=== PATIENT | male | born 2000 | race Hispanic/Latino ===

== ENCOUNTER 2020-06-30 22:20 | Emergency (ER) | payer SELFPAY ==
[~2020-06-30] VITALS: Ht 172.7 cm; Wt 86.2 kg
[2020-06-30] MEDS ORDERED: IBUPROFEN 600 MG TAB PO STA (22:22)
[2020-06-30] MEDS ORDERED: ACETAMINOPHEN 325 MG TAB PO ONE (22:30)
--- NOTE | 2020-06-30 22:42 | Emergency Department Note ---
History of Present Illnes History of Present Illness Chief Complaint: COVID PUI History of Present Illness This is a 20 year old male with no significant past medical history except for positive coronavirus who presents to emergency department for continued fever and shortness of breath. He has a pulse oximeter at home has been taking szeq-hen-yauijwl medications. He has ran out of Tylenol and ibuprofen and has had a fever today. He continues to feel shortness of breath and is concerned he has pneumonia. Historian: Patient Arrival Mode: Car Additional Treatment LICENSED GUIDE: None Director Of Special Services Required: No Onset (how long ago): day(s) (10) Location: Lungs Quality: SoB Radiation: Reports non-radiation Severity: moderate Onset quality: gradual Duration (how long): day(s) (10) Timing of current episode: constant Progression: worsening Chronicity: new Context: Reports recent illness Relieving factors: none Exacerbating factors: none Associated symptoms: Reports denies other symptoms Past Medical/Family History Physician Review I have reviewed the patient's past medical and family history. Any updates have been documented here. Review of Systems Review of Systems Constitutional: Reports as per HPI, Reports chills, Reports fever EENTM: Reports no symptoms Cardiovascular: Reports no symptoms Respiratory: Reports as per HPI, Reports dyspnea, Reports dyspnea on exertion Gastrointestinal: Reports no symptoms Genitourinary: Reports no symptoms Musculoskeletal: Reports no symptoms Integumentary: Reports no symptoms Neurological: Reports no symptoms Psychological: Reports no symptoms Endocrine: Reports no symptoms Hematological/Lymphatic: Reports no symptoms Review of other systems: All other systems negative Physical Exam Related Data Allergies: Coded Allergies: No Known Allergies (Unverified , 06/30/20) Vital signs reviewed: Yes Physical Exam CONSTITUTIONAL Constitutional: Present well-developed, Present well-nourished HENT HENT: Present normocephalic, Present atraumatic, Present oropharynx clear/moist, Present nose normal HENT L/R: Present left ext ear normal, Present right ext ear normal EYES Eyes: Reports PERRL, Reports conjunctivae normal NECK Neck: Present ROM normal PULMONARY Pulmonary: Present effort normal, Present breath sounds normal, Present other (Crackles in lung bases); Absent respiratory distress CARDIOVASCULAR Cardiovascular: Present regular rhythm, Present heart sounds normal, Present capillary refill normal, Present normal rate GASTROINTESTINAL Abdominal: Present soft, Present nontender, Present bowel sounds normal GENITOURINARY Genitourinary: Present exam deferred SKIN Skin: Present warm, Present dry MUSCULOSKELETAL Musculoskeletal: Present ROM normal NEUROLOGICAL Neurological: Present alert, Present oriented x 3, Present no gross motor or sensory deficits PSYCHOLOGICAL Psychological: Present mood/affect normal, Present judgement normal Assessment & Plan Medical Decision Making MDM 20-year-old male who is COVID positive presents for continued fever and shortness of breath. Symptoms have been present for 10 days. He was taking zeun-bxj-rhwwkfh cold medicines but has since run out of Tylenol or ibuprofen. He is concerned that he has pneumonia. Examination shows fever of 102 and initial heart rate of 114 with O2 sats 96%. No wrist or distress and is otherwise well-appearing. He was given Tylenol and ibuprofen and a chest x-ray obtained which is consistent with COVID-19. I discussed with him at length the expected disease time course and management. Gave him return precautions and he'll continue to use his pulse oximeter at home. He will continue to use jbiw-thu-lhecwlg cold medicines as well as Tylenol and ibuprofen. Patient states agreement plan is appropriate for discharge. Reassessment Reassessment time: 22:41 Reassessment Well appearing, symptoms improved after Tylenol/ibuprofen Assessment & Plan Final Impression: (1) COVID-19 Depart Disposition: HOME, SELF-CARE Medications in the ED Acetaminophen 650 mg ONCE ONCE PO Last administered on 06/30/20at 22:29; Admin Dose 650 MG; Start 06/30/20 at 22:30; Stop 06/30/20 at 22:31; Status UNV Ibuprofen 600 mg ONCE STAT PO Last administered on 06/30/20at 22:29; Admin Dose 600 MG; Start 06/30/20 at 22:22; Stop 06/30/20 at 22:23; Status UNV TAI DAVIS MD Jun 30, 2020 22:42
--- NOTE | 2020-07-01 00:38 | Diagnostic Imaging Report ---
EXAMINATION: CHEST SINGLE (PORTABLE) INDICATION: ^Y ^SoB ^[id number] ^2300 COMPARISON: None FINDINGS: AP view TUBES and LINES: None. LUNGS: Limited by body habitus and low lung volumes. Left basilar linear opacification. PLEURA: No pleural effusion or pneumothorax. HEART AND MEDIASTINUM: The cardiomediastinal silhouette is unremarkable. BONES AND SOFT TISSUES: No acute osseous lesion. Soft tissues are unremarkable. UPPER ABDOMEN: No free air under the diaphragm. IMPRESSION: Limited as above. Left basilar linear opacification, could represent atelectasis/scarring versus pneumonia in the appropriate clinical context. Signed by: Dr. Filemon Monteiro MD on 06/30/2020 11:35 PM
--- NOTE | 2020-07-01 00:49 | Diagnostic Imaging Report ---
EXAMINATION: CHEST SINGLE (PORTABLE) INDICATION: Fever and shortness of breath COMPARISON: None FINDINGS: AP view TUBES and LINES: None. LUNGS: Limited by low lung volumes and body habitus. Linear left basilar opacification. PLEURA: No pleural effusion or pneumothorax. HEART AND MEDIASTINUM: The cardiomediastinal silhouette is unremarkable. BONES AND SOFT TISSUES: No acute osseous lesion. Soft tissues are unremarkable. UPPER ABDOMEN: No free air under the diaphragm. IMPRESSION: Linear left basilar opacification, could represent atelectasis/scarring versus pneumonia in the appropriate clinical context. Signed by: Dr. Filemon Monteiro MD on 07/01/2020 12:45 AM
== END 2020-07-01 00:48 | disposition home or self-care (01) ==
LOC: ER 22:22
DX: U07.1 COVID-19 (principal); R50.9 Fever, unspecified; R06.02 Shortness of breath
CPT/HCPCS: 71045; 99283

== ENCOUNTER 2020-07-01 19:34 | Emergency (ER) | payer SELFPAY ==
[~2020-07-01] VITALS: Ht 172.7 cm; Wt 86.2 kg
[2020-07-01] MEDS ORDERED: IBUPROFEN 600 MG TAB PO STA (19:41)
[2020-07-01] MEDS ORDERED: ACETAMINOPHEN 325 MG TAB ONE (20:18)
--- NOTE | 2020-07-01 20:58 | Emergency Department Note ---
History of Present Illnes History of Present Illness Chief Complaint: COVID PUI History of Present Illness This is a 20 year old male PRESENTS TO ED WITH FEVER; PT IS COVID +; WAS SEEN AT THIS FACILITY YESTERDAY, 06/30/2020; RESP ARE EVEN, UNLABORED, PT PRESENTS BECAUSE HE IS STILL RUNNING FEVER. Historian: Patient Arrival Mode: Car Onset (how long ago): day(s) (4) Location: ALL OVER Quality: FEVER, BODYACHEM COUGH, SOB Radiation: Reports non-radiation Severity: mild Onset quality: gradual Duration (how long): day(s) (4) Progression: unchanged Chronicity: new Context: Reports recent illness (COVID POSITIVE) Relieving factors: none Exacerbating factors: none Associated symptoms: Reports denies other symptoms Treatments prior to arrival: antipyretic Past Medical/Family History Physician Review I have reviewed the patient's past medical and family history. Any updates have been documented here. Past Medical History Recent Fever: Yes Clinical Suspicion of Infectio: No New/Unexplained Change in Ment: No Past Medical History: None Past Surgical History: None Social History Smoking Cessation: Never Smoker Alcohol Use: None Any Illegal Drug Use: No Family History Family history of heart diseas: No Review of Systems Review of Systems Constitutional: Reports as per HPI EENTM: Reports no symptoms Cardiovascular: Reports no symptoms Respiratory: Reports as per HPI Gastrointestinal: Reports no symptoms Genitourinary: Reports no symptoms Musculoskeletal: Reports no symptoms Integumentary: Reports no symptoms Neurological: Reports no symptoms Psychological: Reports no symptoms Endocrine: Reports no symptoms Hematological/Lymphatic: Reports no symptoms Physical Exam Related Data Allergies: Coded Allergies: No Known Allergies (Unverified , 06/30/20) Triage Vital Signs Vital Signs Date Time Temp Pulse Resp B/P (MAP) Pulse Ox O2 Delivery O2 Flow Rate FiO2 07/01/20 19:38 Room Air 07/01/20 20:10 102.4 118 20 97 Vital signs reviewed: Yes Physical Exam CONSTITUTIONAL Constitutional: Present well-developed, Present well-nourished; Absent distressed HENT HENT: Present normocephalic, Present atraumatic, Present oropharynx clear/moist, Present nose normal HENT L/R: Present left ext ear normal, Present right ext ear normal EYES Eyes: Reports PERRL, Reports conjunctivae normal NECK Neck: Present ROM normal PULMONARY Pulmonary: Present effort normal, Present breath sounds normal, Present other (DECREASED BREATH SOUNDS AT BASE BILATERAL); Absent respiratory distress CARDIOVASCULAR Cardiovascular: Present regular rhythm, Present heart sounds normal, Present capillary refill normal, Present tachycardia (115) GASTROINTESTINAL Abdominal: Present soft, Present nontender, Present bowel sounds normal GENITOURINARY Genitourinary: Present exam deferred SKIN Skin: Present warm, Present dry MUSCULOSKELETAL Musculoskeletal: Present ROM normal NEUROLOGICAL Neurological: Present alert, Present oriented x 3, Present no gross motor or sensory deficits PSYCHOLOGICAL Psychological: Present mood/affect normal, Present judgement normal Assessment & Plan Medical Decision Making MDM PT WITH COVID 19 AND PRESENTS BECAUSE HE IS STILL RUNNING FEVER MOTRIN 600 MG PO ORDERED Reassessment Reassessment time: 22:45 Reassessment temp 99.3 oxygen saturation 97 % on room air Assessment & Plan Final Impression: (1) COVID-19 Depart Disposition: HOME, SELF-CARE Last Vital Signs Date Time Temp Pulse Resp B/P (MAP) Pulse Ox O2 Delivery O2 Flow Rate FiO2 07/01/20 20:10 102.4 118 20 119/64 97 Room Air Medications in the ED Ibuprofen 600 mg ONCE STAT PO Last administered on 07/01/20at 20:22; Admin Dose 600 MG; Start 07/01/20 at 19:41; Stop 07/01/20 at 19:50; Status DC Acetaminophen 325 mg STK-MED ONCE .ROUTE ; Start 07/01/20 at 20:18; Stop 07/01/20 at 20:12; Status DC MICHEAL BONILLA MD Jul 01, 2020 20:58
--- OUTSIDE RECORDS SUMMARY | 2020-07-01 21:51 | XMS REPORT | Continuity of Care Document ---
Author Author [facility] t Organization [facility] Address [facility] 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 Allergies, Adverse Reactions, Alerts This patient has no known allergies or adverse reactions. Medications This patient has no known medications. Procedures This patient has no known procedures. Results Test Description Test Time Test Comments Results Result Comments Source CHEST SINGLE (PORTABLE) 2020-07-01 00:44:00 [place] [id number] Patient Name: CANDY RIOS MR #: [id number] : 2000 Age/Sex: 20/M Req #: [id number] Adm Physician: Ordered by: Tai Aldridge MD Report #: [id number] Location: ER Room/Bed: Procedure: [id number] DX/CHEST SINGLE (PORTABLE) Exam Date: Exam Time: REPORT STATUS: Signed EXAMINATION: CHEST SINGLE (PORTABLE) INDICATION: Fever and shortness of breath COMPARISON: None FINDINGS: AP view TUBES and LINES: None. LUNGS: Limited by low lung volumes and body habitus. Linear left basilar opacification. PLEURA: No pleural effusion or pneumothorax. HEART AND MEDIASTINUM: The cardiomediastinal silhouette is unremarkable. BONES AND SOFT TISSUES: No acute osseous lesion. Soft tissues are unremarkable. UPPER ABDOMEN: No free air under the diaphragm. IMPRESSION: Linear left basilar opacification, could represent atelectasis/scarring versus pneumonia in the a ppropriate clinical context. Signed by: Dr. Filemon Angel MD on 07/01/2020 12:45 AM Dictated By: FILEMON ANGEL MD Transcribed By: ROSEANN on 07/01/2044 COPY TO: TAI ALDRIDGE MD CHEST SINGLE (PORTABLE) 2020-06-30 23:34:00 [place] [id number] Patient Name: CANDY RIOS MR #: [id number] : 2000 Age/Sex: 20/M Req #: [id number] Adm Physician: Ordered by: Tai Aldridge MD Report #: [id number] Location: ER Room/Bed: Procedure: [id number] DX/CHEST SINGLE (PORTABLE) Exam Date: 06/30/20 Exam Time: 2299 REPORT STATUS: Signed EXAMINATION: CHEST SINGLE (PORTABLE) INDICATION: Y SoB [id number] 2299 COMPARISON: None FINDINGS: AP view TUBES and LINES: None. LUNGS: Limited by body habitus and low lung volumes. Left basilar linear opacification. PLEURA: No pleural effusion or pneumothorax. HEART AND MEDIASTINUM: The cardiomediastinal silhouette is unremarkable. BONES AND SOFT TISSUES: No acute osseous lesion. Soft tissues are unremarkable. UPPER ABDOMEN: No free air under the diaphragm. IMPRESSION: Limited as above. Left basilar linear opacification, could represent atelectasis/scarring versus pneumonia in the appropriate clinical context. Signed by: Dr. Filemon Angel MD on 06/30/2020 11:35 PM Dictated By: FILEMON ANGEL MD 34 Transcribed By: ROSEANN on 06/30/202334 COPY TO: TAI ALDRIDGE MD
--- NOTE | 2020-07-01 22:48 | NUR ---
RT called for incentive spirometer teaching at this time
== END 2020-07-01 22:57 | disposition home or self-care (01) ==
LOC: ER 19:47
DX: U07.1 COVID-19 (principal); R50.9 Fever, unspecified; R05 Cough
CPT/HCPCS: 99282